=== PATIENT | male | born 1930 | race Caucasian/White ===

== ENCOUNTER 2017-09-12 10:04 | Outpatient (CLI) | payer OTHER ==
[2014-10-16 11:14] VITALS: BP 127/79
[2017-09-12 10:53] LABS: eGFR (African) > 60; eGFR (Non-African) > 60
== END 2017-09-12 10:06 ==
LOC: LAB 10:04
PROVIDERS: ATTEND Family Medicine
DX: E78.2 Mixed hyperlipidemia (principal)
CPT/HCPCS: 36415; 80053; 80061

== ENCOUNTER 2018-10-01 09:40 | Outpatient (CLI) | payer OTHER ==
[2014-10-16 11:14] VITALS: BP 127/79
[2018-10-09 07:56] LABS: HDL 85 mg/dL (>40); eGFR (Non-African) > 60
[2018-11-15 12:59] VITALS: BP 132/74
== END 2018-10-01 09:45 | disposition home or self-care (01) ==
LOC: LAB 09:40
PROVIDERS: ATTEND Family Medicine
DX: I10 Essential (primary) hypertension (principal)
CPT/HCPCS: 36415; 80053; 80061